=== PATIENT | male | born 1965 | race Caucasian/White ===

== ENCOUNTER → 2016-08-31 | Outpatient (CLI) | payer OTHER ==
--- NOTE | 2016-08-31 17:05 | DX ---
Left Hip, Two Views August 31, 2016 Indication: Hip pain for one month. Technique: AP and frogleg lateral views. Findings: The normally mineralized bones are anatomically aligned. No fracture, bone lesion, or perio steal reaction. Joint spaces are well preserved. Minimal subchondral sclerosis and cysts reside in th e right and left acetabular roofs. Minimal productive osteoarthritis involves the sacroiliac joints. No erosive disease. 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
== END ==
LOC: BMCIMAGING 15:53
PROVIDERS: ATTEND Internal Medicine
DX: M25.552 Pain in left hip (principal)

== ENCOUNTER → 2016-09-27 | Outpatient (CLI) | payer OTHER ==
--- NOTE | 2016-09-27 11:17 | DX ---
Intraoperative fluoroscopy. 09/27/2016 History: Left hip injection. Discussion: 0.1 seconds of fluoroscopy time were utilized by Dr. Carlos jo during left hip injec tion. Radiographs obtained during the procedure demonstrate a needle placed over the proximal left femur. Impression: Intraoperative fluoroscopy during left hip therapeutic injection.
== END ==
LOC: BMCIMAGING 10:24
PROVIDERS: ATTEND Orthopaedic Surgery
DX: M25.552 Pain in left hip (principal)

== ENCOUNTER → 2017-04-04 | Outpatient (CLI) | payer OTHER | LOC: BMCIMAGING 09:39 | PROVIDERS: ATTEND Orthopaedic Surgery | DX: M25.552 Pain in left hip (principal) ==